=== PATIENT | female | born 1990 | race Caucasian/White ===

== ENCOUNTER 2016-09-28 01:26 | Emergency (ER) | payer OTHER ==
--- NOTE | 2016-09-28 04:25 | ED NURSING NOTES ---
Clinical Report - Nurses [facility] [address] [place] [address] 09/28/2016 1:27 Patient: FOX OROZCO TRIAGE Triage time 0150. Acuity: LEVEL 3. Chief Complaint: PELVIC PAIN and PAINFUL URINATION, URGENCY and FREQUENCY. NATIVIDAD COMA SCORE: Natividad Coma Scale: 15- eyes open spontaneously (4); best verbal response- oriented x 4 (5); best motor response- obeys commands (6). --01:59 Vonda Lao R.N. 01:50 09/28/16. BP: 140/90. HR: 100. RR: 20 (unlabored). O2 saturation: 100% on room air. Temp: 98.3 F (oral). Pain level now: 07/01. --01:59 Vonda Lao R.N. Weight: 52.1 kg stated. Height/Length: 65 inches Per Patient. BMI: 19.1. --01:50 Vonda Lao R.N. Medications None. --01:57 Vonda Loa R.N. Medication/allergy information source: the patient. --01:59 Vonda Lao R.N. Allergies No Known Drug Allergy. --01:57 Vonda Lao R.N. History Arrived by private vehicle. Historian: patient. Accompanied by friend. Primary physician ([facility] [place]). ( Pt c/o urinary symptoms x 4 days, blood in urine since yesterday. Pt also concerned of possible incomplete . [facility], given a 2 step dose of pills to abort of 11 weeks. Pt state she vomited, unsure if was completed and now worried.). Onset. (4 days ago). 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 PAST MEDICAL HX: Last normal menstrual period- mid June 2016. SOCIAL HX: Light tobacco smoker (cigarette)- less than 1/2 a pack per day. History of occasional drug use. (meth). No alcohol use. ABUSE ASSESSMENT: No report of abuse. FALL RISK ASSESSMENT: Fall risk assessment completed. No fall risk identified. NUTRITIONAL RISK ASSESSMENT: The nutritional risk assessment revealed no deficiencies. FUNCTIONAL ASSESSMENT: Functional assessment: no impairments noted. LEARNING NEEDS ASSESSMENT: The learning needs assessment revealed no barriers. SKIN INTEGRITY ASSESSMENT: Skin integrity risk assessment completed. No skin integrity risk identified. --01:59 Vonda Lao R.N. ADDITIONAL SURGERIES: . Tonsillectomy. --01:58 Vonda Lao R.N. Interventions ID band on patient. To treatment room. --01:59 Vonda Lao R.N. PHYSICAL ASSESSMENT 02:33. Ambulatory to room. GENERAL / NEURO / PSYCH: Alert. Oriented X 4. HEENT: Mucous membranes are pink. RESPIRATORY: Respirations not labored. SKIN: Skin is warm and dry. --02:34 Per Cotto R.N. NURSING PROGRESS NOTES 02:33 Patient in restroom collecting urine sample. --02:33 Per Ctoto R.N. Patient ID band checked for patient name and birthdate: patient confirmed. Clean catch urine collected with return of yellow-colored cloudy urine; sample sent to lab for urinalysis and HCG. Specimen labeled in the presence of the patient. --02:35 Per Cotto R.N. 02:36. Head of bed elevated. Two patient identifiers checked. Call light placed in reach. Bed placed in lowest position. Brakes of bed on. --02:36 Per Cotto R.N. 02:46 09/28/2016 Site #1 started via IV in the left antecubital space with an 20g angiocath, with aseptic technique and good blood return; one attempt. Blood drawn: rainbow set. Labeled in the presence of the patient and sent to the lab. Saline lock flushed with 10 mL saline. --02:52 Pre Cotto R.N. 04:00 09/28/2016 Augmentin (Amoxicillin-Pot Clavulanate) PO 875 mg given. Allergies verified and confirmed 5 rights. --04:06 Per Cotto R.N. 04:38. The patient is calm and resting quietly. SKIN: Skin is warm and dry. Skin color within normal limits. --04:41 Per Cotto R.N. DISPOSITION / DISCHARGE 04:35 09/28/2016 Site #1 removed upon discharge. Catheter intact. Bandage applied. --04:41 Per Cotto R.N. Departure time: 04:40. Condition at departure: stable. No learning barriers present. Discharge instructions provided and reviewed with operating room aide and the patient. Reviewed medication(s) side effects, precautions, dosing and course information. Prescription(s) given to the patient. Patient and operating room aide verbalized understanding. Written instructions provided in German. The patient was discharged home and accompanied by operating room aide. She left the Emergency Department ambulatory and via private vehicle. Concrete Vault Maker driving. FALL RISK ASSESSMENT: Fall risk assessment completed. No fall risk identified. --04:41 Per Cotto R.N. 04:39 09/28/16. BP: 128/63. HR: 88. RR: 14. O2 saturation: 100% on room air. Pain level now: 11/29. --04:41 Per Cotto R.N. Locked/Released at 09/28/2016 5:04 by Per Cotto R.N.
--- NOTE | 2016-09-28 04:25 | ED CLINICAL REPORT ---
Clinical Report - Physicians/Mid Levels [facility] [address] [place] [address] 09/28/2016 1:27 Patient: FOX OROZCO Time Seen: 03:21 Sep 28 2016. Arrived- By private vehicle. Historian- patient. CPT: ER phys charges level 4 (#[id number]). HISTORY OF PRESENT ILLNESS Chief Complaint: DYSURIA. 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 Pt also concerned of possible incomplete . [facility], given a 2 step dose of pills to abort of 11 weeks. Pt state she vomited, unsure if was completed and now worried.). Has not had any vaginal discharge or bleeding . does have dysuria and back pain on the right. and still present. The symptoms are described as moderate. Modifying factors- worsened by urination. Not relieved by anything. The patient has had abdominal pain. She has had mild, constant right-sided flank pain. No pelvic pain, vaginal pain, low back pain, abnormal bleeding or vaginal discharge. She has had pain with urination. The patient has had urinary frequency. Currently . Similar symptoms previously: None. Recent medical care: Not recently seen/assessed. REVIEW OF SYSTEMS The patient has had vomiting. No diarrhea, black stools, fever, chills or sore throat. No cough, difficulty breathing, chest pain or skin rash. All systems otherwise negative, except as recorded above. PAST HISTORY ( . Tonsillectomy). No history of ectopic . Medications: None. Allergies: No Known Drug Allergy. SOCIAL HISTORY Heavy tobacco smoker (cigarette)- less than 1 pack per day. History of drug use: methamphetamines. No alcohol use. ADDITIONAL NOTES The nursing notes have been reviewed. PHYSICAL EXAM Vital Signs: 09/28/2016 01:50 BP: 140/90. HR: 100. RR: 20. O2 saturation: 100%. Temp: 98.3 F. Pain level now: 1010. Appearance: Alert. No acute distress. Anxious. HEENT: Normal external inspection. ENT: Pharynx normal. Neck: Neck supple. CVS: Heart sounds normal. Respiratory: No respiratory distress. Breath sounds normal. Chest nontender. Abdomen: Soft and nontender. Bowel sounds normal. Back: Normal external inspection. No CVA tenderness. Skin: Normal skin color. No rash. Extremities: Extremities nontender. Neuro: Oriented X 3. Mood/affect normal. No motor deficit. LABS, X-RAYS, AND EKG Laboratory Tests: UA-Culture if indicated: (TIO: 09/28/2016 02:12) ( [facility] 09[facility] 03[facility]09) Final results Test Result Flag Units (Reference) URINE COLOR YELLOW URINE APPEARANCE CLEAR URINE GLUCOSE NEGATIVE (NEGATIVE) URINE BILIRUBIN NEGATIVE (NEGATIVE) URINE KETONE TRACE (NEGATIVE) URINE SPECIFIC GRAVITY >= 1.030 (1.010-1.030) URINE PH 6.5 (5.0-8.0) URINE PROTEIN 2+ (NEGATIVE) URINE UROBILINOGEN 0.2 EU/dL (0.2-1.0) URINE NITRITE NEGATIVE (NEGATIVE) URINE BLOOD 3+ (NEGATIVE) URINE LEUK ESTERASE POSITIVE (NEGATIVE) URINE RBC 5-10 rbc/hpf (0-1) URINE WBC 25-50 wbc/hpf (0-1) URINE EPITHELIAL CELLS 3-5 EPI/hpf (0-5) URINE BACTERIA MANY (4+) (NONE SEEN) URINE COMMENT CULTURE INDICATED URINE CULTURES ARE SET-UP BASED ON THE FOLLOWING CRITERIA:POSITIVE NITRITEPOSITIVE LEUKOCYTE ESTERASEGREATER THAN 10 WHITE BLOOD CELLSMODERATE (2+) OR GREATER BACTERIA CBC w Diff: (TIO: 09/28/2016 02:45) ( [facility] 09/28/2016 03:15) Final results Test Result Flag Units (Reference) WHITE BLOOD COUNT 15.5 H K/uL (4.5-11.5) RED BLOOD COUNT 4.24 M/uL (4.00-5.20) HEMOGLOBIN 13.3 gm/dL (12.0-16.0) HEMATOCRIT 39.7 % (36.0-46.0) MEAN CELL VOLUME 94 fL (80-100) MEAN CORPUSCULAR HGB 31 pg (26-34) MEAN CORPUSCULAR HGB CONC 34 g/dL (31-37) RED CELL DISTRIBUTION WIDTH 13.6 % (11.6-14.8) PLATELET COUNT 294 K/uL (150-400) NEUTROPHIL % 83.8 H % (50-75) LYMPH % 11.9 L % (25-40) MONO % 3.2 % (3-14) EOSINOPHIL % 0.8 % (0-4) BASOPHIL % 0.3 % (0-2) BMP: (TIO: 09/28/2016 02:45) ( [facility] 09/28/2016 03:47) Final results Test Result Flag Units (Reference) GLUCOSE 72 mg/dL (70-110) BUN 9 mg/dL (7-18) CREATININE 0.7 mg/dL (0.6-1.3) Estimated GFR >60 mL/min Estimated GFR- >60 mL/min Note: Persistent reduction over 3 months in eGFR<60 mL/min/1.73 m2 defines CKD. Patients with eGFR values>=60 mL/min/1.73 m2 may also have CKD if evidence ofpersistent proteinuria. Additional information may be foundat www.kidney.org. SODIUM 137 mmol/L (136-145) POTASSIUM 3.0 L mmol/L (3.5-5.1) CHLORIDE 102 mmol/L (98-107) CARBON DIOXIDE 28 mmol/L (21-32) CALCIUM 8.4 L mg/dL (8.5-10.1) BETA HCG, QUANTITATIVE 21813 mIU/mL REFERENCE RANGE:Adult Males: <2 mIU/mLNon- Females: <6 mIU/mL Females:Approximate Approximate hCGGestational Age Range (mIU/mL) 0-1 week 0-501-2 weeks 40-3002-3 weeks 100-18033-9 weeks 500-38047-0 months 5,000-200,0002-3 months 10,000-100,0002nd trimester 3,000-50,0003rd trimester 1,000-50,000 . PROGRESS AND PROCEDURES Course of Care: Tino Pt has had no symptoms of despite taking medications to induce . She does have a UTI. Augmentin 875 mg PO Patient is stable. Patient/family counseled. Disposition: Discharged. Condition: stable. CLINICAL IMPRESSION Acute urinary tract infection with cystitis and pyelonephritis. 11 week on protocol: no results at this time. INSTRUCTIONS Drink plenty of fluids. Warnings: Further evaluation is necessary. GENERAL WARNINGS: Return or contact your physician immediately if your condition worsens or changes unexpectedly, if not improving as expected, or if other problems arise. Prescription Medications: Amoxicillin/Clavulanate 875 mg: take 1 tablet orally every 12 hours for 7 days. Dispense fourteen (14). No refills. Follow-up: Follow up with your doctor Friday in two days. Call for an appointment. Understanding of the discharge instructions verbalized by patient. Discharge instructions reviewed with and understanding was verbalized by metal pattern maker. (Electronically signed by Cecil Gary MD 09/29/2016 22:35)
--- NOTE | 2016-09-28 04:25 | ED CLINICAL REPORT ---
Clinical Report - Physicians/Mid Levels [facility] [address] [place] [address] 09/28/2016 1:27 Patient: FOX OROZCO Time Seen: 03:21 Sep 28 2016. Arrived- By private vehicle. Historian- patient. CPT: ER phys charges level 4 (#[id number]). HISTORY OF PRESENT ILLNESS Chief Complaint: DYSURIA. 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 Pt also concerned of possible incomplete . [facility], given a 2 step dose of pills to abort of 11 weeks. Pt state she vomited, unsure if was completed and now worried.). Has not had any vaginal discharge or bleeding . does have dysuria and back pain on the right. and still present. The symptoms are described as moderate. Modifying factors- worsened by urination. Not relieved by anything. The patient has had abdominal pain. She has had mild, constant right-sided flank pain. No pelvic pain, vaginal pain, low back pain, abnormal bleeding or vaginal discharge. She has had pain with urination. The patient has had urinary frequency. Currently . Similar symptoms previously: None. Recent medical care: Not recently seen/assessed. REVIEW OF SYSTEMS The patient has had vomiting. No diarrhea, black stools, fever, chills or sore throat. No cough, difficulty breathing, chest pain or skin rash. All systems otherwise negative, except as recorded above. PAST HISTORY ( . Tonsillectomy). No history of ectopic . Medications: None. Allergies: No Known Drug Allergy. SOCIAL HISTORY Heavy tobacco smoker (cigarette)- less than 1 pack per day. History of drug use: methamphetamines. No alcohol use. ADDITIONAL NOTES The nursing notes have been reviewed. PHYSICAL EXAM Vital Signs: 09/28/2016 01:50 BP: 140/90. HR: 100. RR: 20. O2 saturation: 100%. Temp: 98.3 F. Pain level now: 1010. Appearance: Alert. No acute distress. Anxious. HEENT: Normal external inspection. ENT: Pharynx normal. Neck: Neck supple. CVS: Heart sounds normal. Respiratory: No respiratory distress. Breath sounds normal. Chest nontender. Abdomen: Soft and nontender. Bowel sounds normal. Back: Normal external inspection. No CVA tenderness. Skin: Normal skin color. No rash. Extremities: Extremities nontender. Neuro: Oriented X 3. Mood/affect normal. No motor deficit. LABS, X-RAYS, AND EKG Laboratory Tests: UA-Culture if indicated: (TIO: 09/28/2016 02:12) ( [facility]) Final results Test Result Flag Units (Reference) URINE COLOR YELLOW URINE APPEARANCE CLEAR URINE GLUCOSE NEGATIVE (NEGATIVE) URINE BILIRUBIN NEGATIVE (NEGATIVE) URINE KETONE TRACE (NEGATIVE) URINE SPECIFIC GRAVITY >= 1.030 (1.010-1.030) URINE PH 6.5 (5.0-8.0) URINE PROTEIN 2+ (NEGATIVE) URINE UROBILINOGEN 0.2 EU/dL (0.2-1.0) URINE NITRITE NEGATIVE (NEGATIVE) URINE BLOOD 3+ (NEGATIVE) URINE LEUK ESTERASE POSITIVE (NEGATIVE) URINE RBC 5-10 rbc/hpf (0-1) URINE WBC 25-50 wbc/hpf (0-1) URINE EPITHELIAL CELLS 3-5 EPI/hpf (0-5) URINE BACTERIA MANY (4+) (NONE SEEN) URINE COMMENT CULTURE INDICATED URINE CULTURES ARE SET-UP BASED ON THE FOLLOWING CRITERIA:POSITIVE NITRITEPOSITIVE LEUKOCYTE ESTERASEGREATER THAN 10 WHITE BLOOD CELLSMODERATE (2+) OR GREATER BACTERIA CBC w Diff: (TIO: 09/28/2016 02:45) ( [facility] 09/28/2016 03:15) Final results Test Result Flag Units (Reference) WHITE BLOOD COUNT 15.5 H K/uL (4.5-11.5) RED BLOOD COUNT 4.24 M/uL (4.00-5.20) HEMOGLOBIN 13.3 gm/dL (12.0-16.0) HEMATOCRIT 39.7 % (36.0-46.0) MEAN CELL VOLUME 94 fL (80-100) MEAN CORPUSCULAR HGB 31 pg (26-34) MEAN CORPUSCULAR HGB CONC 34 g/dL (31-37) RED CELL DISTRIBUTION WIDTH 13.6 % (11.6-14.8) PLATELET COUNT 294 K/uL (150-400) NEUTROPHIL % 83.8 H % (50-75) LYMPH % 11.9 L % (25-40) MONO % 3.2 % (3-14) EOSINOPHIL % 0.8 % (0-4) BASOPHIL % 0.3 % (0-2) BMP: (TIO: 09/28/2016 02:45) ( MsgRcvd 09/28/2016 03:47) Final results Test Result Flag Units (Reference) GLUCOSE 72 mg/dL (70-110) BUN 9 mg/dL (7-18) CREATININE 0.7 mg/dL (0.6-1.3) Estimated GFR >60 mL/min Estimated GFR- >60 mL/min Note: Persistent reduction over 3 months in eGFR<60 mL/min/1.73 m2 defines CKD. Patients with eGFR values>=60 mL/min/1.73 m2 may also have CKD if evidence ofpersistent proteinuria. Additional information may be foundat www.kidney.org. SODIUM 137 mmol/L (136-145) POTASSIUM 3.0 L mmol/L (3.5-5.1) CHLORIDE 102 mmol/L (98-107) CARBON DIOXIDE 28 mmol/L (21-32) CALCIUM 8.4 L mg/dL (8.5-10.1) BETA HCG, QUANTITATIVE 03225 mIU/mL REFERENCE RANGE:Adult Males: <2 mIU/mLNon- Females: <6 mIU/mL Females:Approximate Approximate hCGGestational Age Range (mIU/mL) 0-1 week 0-501-2 weeks 40-3002-3 weeks 100-65004-9 weeks 500-60880-6 months 5,000-200,0002-3 months 10,000-100,0002nd trimester 3,000-50,0003rd trimester 1,000-50,000 . PROGRESS AND PROCEDURES Course of Care: Tino Pt has had no symptoms of despite taking medications to induce . She does have a UTI. Augmentin 875 mg PO Patient is stable. Patient/family counseled. Disposition: Discharged. Condition: stable. CLINICAL IMPRESSION Acute urinary tract infection with cystitis and pyelonephritis. 11 week on protocol: no results at this time. INSTRUCTIONS Drink plenty of fluids. Warnings: Further evaluation is necessary. GENERAL WARNINGS: Return or contact your physician immediately if your condition worsens or changes unexpectedly, if not improving as expected, or if other problems arise. Prescription Medications: Amoxicillin/Clavulanate 875 mg: take 1 tablet orally every 12 hours for 7 days. Dispense fourteen (14). No refills. Follow-up: Follow up with your doctor Friday in two days. Call for an appointment. Understanding of the discharge instructions verbalized by patient. Discharge instructions reviewed with and understanding was verbalized by transportation sales consultant. (Electronically signed by Cecil Gary MD 09/29/2016 22:35)
--- NOTE | 2016-09-28 04:25 | ED NURSING NOTES ---
Clinical Report - Nurses [facility] [address] [place] [address] 09/28/2016 1:27 Patient: FOX OROZCO TRIAGE Triage time 0150. Acuity: LEVEL 3. Chief Complaint: PELVIC PAIN and PAINFUL URINATION, URGENCY and FREQUENCY. NATIVIDAD COMA SCORE: Natividad Coma Scale: 15- eyes open spontaneously (4); best verbal response- oriented x 4 (5); best motor response- obeys commands (6). --01:59 Vonda Lao R.N. 01:50 09/28/16. BP: 140/90. HR: 100. RR: 20 (unlabored). O2 saturation: 100% on room air. Temp: 98.3 F (oral). Pain level now: 07/01. --01:59 Vonda Lao R.N. Weight: 52.1 kg stated. Height/Length: 65 inches Per Patient. BMI: 19.1. --01:50 Vonda Lao R.N. Medications None. --01:57 Vonda Lao R.N. Medication/allergy information source: the patient. --01:59 Vonda Lao R.N. Allergies No Known Drug Allergy. --01:57 Vonda Lao R.N. History Arrived by private vehicle. Historian: patient. Accompanied by friend. Primary physician ([facility] [place]). ( Pt c/o urinary symptoms x 4 days, blood in urine since yesterday. Pt also concerned of possible incomplete . [facility], given a 2 step dose of pills to abort of 11 weeks. Pt state she vomited, unsure if was completed and now worried.). Onset. (4 days ago). 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 PAST MEDICAL HX: Last normal menstrual period- mid June 2016. SOCIAL HX: Light tobacco smoker (cigarette)- less than 1/2 a pack per day. History of occasional drug use. (meth). No alcohol use. ABUSE ASSESSMENT: No report of abuse. FALL RISK ASSESSMENT: Fall risk assessment completed. No fall risk identified. NUTRITIONAL RISK ASSESSMENT: The nutritional risk assessment revealed no deficiencies. FUNCTIONAL ASSESSMENT: Functional assessment: no impairments noted. LEARNING NEEDS ASSESSMENT: The learning needs assessment revealed no barriers. SKIN INTEGRITY ASSESSMENT: Skin integrity risk assessment completed. No skin integrity risk identified. --01:59 Vonda Lao R.N. ADDITIONAL SURGERIES: . Tonsillectomy. --01:58 Vonda Lao R.N. Interventions ID band on patient. To treatment room. --01:59 Vonda Lao R.N. PHYSICAL ASSESSMENT 02:33. Ambulatory to room. GENERAL / NEURO / PSYCH: Alert. Oriented X 4. HEENT: Mucous membranes are pink. RESPIRATORY: Respirations not labored. SKIN: Skin is warm and dry. --02:34 Per Cotto R.N. NURSING PROGRESS NOTES 02:33 Patient in restroom collecting urine sample. --02:33 Per Cotto R.N. Patient ID band checked for patient name and birthdate: patient confirmed. Clean catch urine collected with return of yellow-colored cloudy urine; sample sent to lab for urinalysis and HCG. Specimen labeled in the presence of the patient. --02:35 Per Cotto R.N. 02:36. Head of bed elevated. Two patient identifiers checked. Call light placed in reach. Bed placed in lowest position. Brakes of bed on. --02:36 Per Cotto R.N. 02:46 09/28/2016 Site #1 started via IV in the left antecubital space with an 20g angiocath, with aseptic technique and good blood return; one attempt. Blood drawn: rainbow set. Labeled in the presence of the patient and sent to the lab. Saline lock flushed with 10 mL saline. --02:52 Per Cotto R.N. 04:00 09/28/2016 Augmentin (Amoxicillin-Pot Clavulanate) PO 875 mg given. Allergies verified and confirmed 5 rights. --04:06 Per Cotto R.N. 04:38. The patient is calm and resting quietly. SKIN: Skin is warm and dry. Skin color within normal limits. --04:41 Per Cotto R.N. DISPOSITION / DISCHARGE 04:35 09/28/2016 Site #1 removed upon discharge. Catheter intact. Bandage applied. --04:41 Per Cotto R.N. Departure time: 04:40. Condition at departure: stable. No learning barriers present. Discharge instructions provided and reviewed with manager client and the patient. Reviewed medication(s) side effects, precautions, dosing and course information. Prescription(s) given to the patient. Patient and manager client verbalized understanding. Written instructions provided in Honduran. The patient was discharged home and accompanied by manager client. She left the Emergency Department ambulatory and via private vehicle. Strip Tank Tender driving. FALL RISK ASSESSMENT: Fall risk assessment completed. No fall risk identified. --04:41 Per Cotto R.N. 04:39 09/28/16. BP: 128/63. HR: 88. RR: 14. O2 saturation: 100% on room air. Pain level now: 11/29. --04:41 Per Cotto R.N. Locked/Released at 09/28/2016 5:04 by Per Cotto R.N.
--- NOTE | 2016-09-28 04:26 | ED ORDER SUMMARY ---
..... Patient: FOX OROZCO OrderSheet [facility] VisitID: [id number] [place] [address] 25y, F Registration Date/Time: 09/28/2016 ORDER SHEET Weight: 52.1 kg (stated) Allergies: No Known Drug Allergy GENERAL ORDERS: UA-Culture if indicated Urgent (02:38 09/28/2016 JQuivey R.N. per protocol) (Ack 2:45 CHagerty ER Research Development Director) (2:50 JQuivey R.N.) CBC w Diff Urgent (02:52 09/28/2016 JQuivey R.N. per protocol) (Ack 2:53 CHagerty ER Research Development Director) (3:33 JQuivey R.N.) BMP Urgent (02:52 09/28/2016 JQuivey R.N. per protocol) (Ack 2:53 CHagerty ER Research Development Director) (3:33 JQuivey R.N.) Serum Quantitative Urgent (02:52 09/28/2016 JQuivey R.N. per protocol) (Ack 2:53 CHagerty ER Research Development Director) (3:33 JQuivey R.N.) MEDICATION ORDERS: Augmentin PO 875 mg (NOW) (03:27 09/28/2016 Christel VILLGARAN) (Ack 3:33 JQuivey R.N.) (4:06 JQuivey R.N.) IV FLUIDS: IV Saline Lock (02:52 09/28/2016 JQuivey R.N. per protocol) (2:52 JQuivey R.N.) ORDER SHEET NOTES: [Electronically signed by Per Cotto R.N. (05:04 09/28/2016)] [Electronically signed by Cecil Gary MD (22:35 09/29/2016)] [Electronically locked/signed by Per Cotto R.N. (05:04 09/28/2016)]
--- NOTE | 2016-09-28 04:26 | ED ORDER SUMMARY ---
..... Patient: FOX OROZCO OrderSheet [facility] VisitID: [id number] [place] [address] 25y, F Registration Date/Time: 09/28/2016 ORDER SHEET Weight: 52.1 kg (stated) Allergies: No Known Drug Allergy GENERAL ORDERS: UA-Culture if indicated Urgent (02:38 09/28/2016 JQuivey R.N. per protocol) (Ack 2:45 CHagerty ER Hotel Concierge) (2:50 JQuivey R.N.) CBC w Diff Urgent (02:52 09/28/2016 JQuivey R.N. per protocol) (Ack 2:53 [facility] ER Hotel Concierge) (3:33 JQuivey R.N.) BMP Urgent (02:52 09/28/2016 JQuivey R.N. per protocol) (Ack 2:53 [facility] Hotel Concierge) (3:33 JQuivey R.N.) Serum Quantitative Urgent (02:52 09/28/2016 JQuivey R.N. per protocol) (Ack 2:53 [facility] Hotel Concierge) (3:33 JQuivey R.N.) MEDICATION ORDERS: Augmentin PO 875 mg (NOW) (03:27 09/28/2016 Christel VILLAGRAN) (Ack 3:33 JQuivey R.N.) (4:06 JQuivey R.N.) IV FLUIDS: IV Saline Lock (02:52 09/28/2016 JQuivey R.N. per protocol) (2:52 JQuivey R.N.) ORDER SHEET NOTES: [Electronically signed by Per Cotto R.N. (05:04 09/28/2016)] [Electronically signed by Cecil Gary MD (22:35 09/29/2016)] [Electronically locked/signed by Per Cotto R.N. (05:04 09/28/2016)]
--- NOTE | 2016-09-29 22:35 | ED MAR SUMMARY ---
..... Medication Administration Record [facility] [address] [place] [address] Patient: FOX OROZCO Visit ID: [id number] 25y, F Weight: 52.1 kg Height/Length: 65 in BMI: 19.1 ALLERGIES: No Known Drug Allergy Given 04:00 09/28/2016 Per Cotto RRafaNRafa Medication Administered: AUGMENTIN [PO] (AMOXICILLIN-POT CLAVULANATE), Dose: 875 mg PO. Medication Ordered: Augmentin PO 875 mg (NOW).
--- NOTE | 2016-09-29 22:35 | ED MED RECONCILIATION SUMMARY ---
Patient: FOX OROZCO Medication Reconciliation Report [facility] VisitID: [id number] [address] [place] [address] 25y, F Registration Date/Time: 09/28/2016 Weight: 52.1 kg Height/Length: 65 in. BMI: 19.1 ALLERGIES: No Known Drug Allergy The patient's Home Medications are listed below: NONE. The source(s) of the original Home Medication information: patient The following Medications were given to the patient in the Emergency Department: Augmentin [PO] PO 875 mg, administered: 09/28/2016 4:00:00 AM The following Medications were prescribed to the patient: Amoxicillin/Clavulanate 875 mg: take 1 tablet orally every 12 hours for 7 days. Dispense fourteen (14). No refills. -- Cecil Gary MD
--- NOTE | 2016-09-29 22:35 | ED DISCHARGE INSTRUCTIONS ---
Patient: FOX OROZCO General Instructions [facility] VisitID: [id number] [place] [address] 25y, F Registration Date/Time: 09/28/2016 Acute urinary tract infection with cystitis and pyelonephritis. 11 week on protocol: no results at this time. INSTRUCTIONS Drink plenty of fluids. Warnings: Further evaluation is necessary. GENERAL WARNINGS: Return or contact your physician immediately if your condition worsens or changes unexpectedly, if not improving as expected, or if other problems arise. Prescription Medications: Amoxicillin/Clavulanate 875 mg: take 1 tablet orally every 12 hours for 7 days. Dispense fourteen (14). No refills. Follow-up: Follow up with your doctor Friday in two days. Call for an appointment. Understanding of the discharge instructions verbalized by patient. Discharge instructions reviewed with and understanding was verbalized by mink farmer. ADDITIONAL INFORMATION Bladder Infection,Female (Adult) A bladder infection ("cystitis" or "UTI") usually causes a constant urge to urinate and a burning when passing urine. Urine may be cloudy, smelly or dark. There may be pain in the lower abdomen. A bladder infection occurs when bacteria from the vaginal area enter the bladder opening (urethra). This can occur from sexual intercourse, wearing tight clothing, dehydration and other factors. Home Care: Drink lots of fluids (at least 6-8 glasses a day, unless you must restrict fluids for other medical reasons). This will force the medicine into your urinary system and flush the bacteria out of your body. Avoid sexual intercourse until your symptoms are gone. Avoid caffeine, alcohol and spicy foods. These can irritate the bladder. A bladder infection is treated with antibiotics. You may also be given Pyridium (generic = phenazopyridine) to reduce the burning sensation. This medicine will cause your urine to become a bright orange color. The orange urine may stain clothing. You may wear a pad or panty-liner to protect clothing. Preventing Future Infections: Always wipe from front to back after a bowel movement. Keep the genital area clean and dry. Drink plenty of fluids each day to avoid dehydration. Both sexual partners should wash before intercourse. Urinate right after intercourse to flush out the bladder. Wear cotton underwear and cotton-lined panty hose; avoid tight-fitting pants. If you are on control pills and are having frequent bladder infections, discuss with your doctor. Follow Up: Return to this facility or see your doctor if ALL symptoms are not gone after three days of treatment. Get Prompt Medical Attention if any of the following occur: Fever of 100.4F (38C) or higher, or as directed by your healthcare provider No improvement by the third day of treatment Increasing back or abdominal pain Repeated vomiting; unable to keep medicine down Weakness, dizziness or fainting Vaginal discharge Pain, redness or swelling in the labia (outer vaginal area) You have been given the following additional information: Bladder Infection, Female (Adult) (Electronically signed by Cecil Gary MD 09/29/2016 22:35)
--- NOTE | 2016-09-29 22:35 | ED MAR SUMMARY ---
..... Medication Administration Record [facility] [address] [place] [address] Patient: FOX OROZCO Visit ID: [id number] 25y, F Weight: 52.1 kg Height/Length: 65 in BMI: 19.1 ALLERGIES: No Known Drug Allergy Given 04:00 09/28/2016 Per Cotto RRafaNRafa Medication Administered: AUGMENTIN [PO] (AMOXICILLIN-POT CLAVULANATE), Dose: 875 mg PO. Medication Ordered: Augmentin PO 875 mg (NOW).
--- NOTE | 2016-09-29 22:35 | ED MED RECONCILIATION SUMMARY ---
Patient: FOX OROZCO Medication Reconciliation Report [facility] VisitID: [id number] [address] [place] [address] 25y, F Registration Date/Time: 09/28/2016 Weight: 52.1 kg Height/Length: 65 in. BMI: 19.1 ALLERGIES: No Known Drug Allergy The patient's Home Medications are listed below: NONE. The source(s) of the original Home Medication information: patient The following Medications were given to the patient in the Emergency Department: Augmentin [PO] PO 875 mg, administered: 09/28/2016 4:00:00 AM The following Medications were prescribed to the patient: Amoxicillin/Clavulanate 875 mg: take 1 tablet orally every 12 hours for 7 days. Dispense fourteen (14). No refills. -- Cecil Gary MD
--- NOTE | 2016-09-29 22:35 | ED DISCHARGE INSTRUCTIONS ---
Patient: FOX OROZCO General Instructions [facility] VisitID: [id number] [place] [address] 25y, F Registration Date/Time: 09/28/2016 Acute urinary tract infection with cystitis and pyelonephritis. 11 week on protocol: no results at this time. INSTRUCTIONS Drink plenty of fluids. Warnings: Further evaluation is necessary. GENERAL WARNINGS: Return or contact your physician immediately if your condition worsens or changes unexpectedly, if not improving as expected, or if other problems arise. Prescription Medications: Amoxicillin/Clavulanate 875 mg: take 1 tablet orally every 12 hours for 7 days. Dispense fourteen (14). No refills. Follow-up: Follow up with your doctor Friday in two days. Call for an appointment. Understanding of the discharge instructions verbalized by patient. Discharge instructions reviewed with and understanding was verbalized by railroad track repair supervisor. ADDITIONAL INFORMATION Bladder Infection,Female (Adult) A bladder infection ("cystitis" or "UTI") usually causes a constant urge to urinate and a burning when passing urine. Urine may be cloudy, smelly or dark. There may be pain in the lower abdomen. A bladder infection occurs when bacteria from the vaginal area enter the bladder opening (urethra). This can occur from sexual intercourse, wearing tight clothing, dehydration and other factors. Home Care: Drink lots of fluids (at least 6-8 glasses a day, unless you must restrict fluids for other medical reasons). This will force the medicine into your urinary system and flush the bacteria out of your body. Avoid sexual intercourse until your symptoms are gone. Avoid caffeine, alcohol and spicy foods. These can irritate the bladder. A bladder infection is treated with antibiotics. You may also be given Pyridium (generic = phenazopyridine) to reduce the burning sensation. This medicine will cause your urine to become a bright orange color. The orange urine may stain clothing. You may wear a pad or panty-liner to protect clothing. Preventing Future Infections: Always wipe from front to back after a bowel movement. Keep the genital area clean and dry. Drink plenty of fluids each day to avoid dehydration. Both sexual partners should wash before intercourse. Urinate right after intercourse to flush out the bladder. Wear cotton underwear and cotton-lined panty hose; avoid tight-fitting pants. If you are on control pills and are having frequent bladder infections, discuss with your doctor. Follow Up: Return to this facility or see your doctor if ALL symptoms are not gone after three days of treatment. Get Prompt Medical Attention if any of the following occur: Fever of 100.4F (38C) or higher, or as directed by your healthcare provider No improvement by the third day of treatment Increasing back or abdominal pain Repeated vomiting; unable to keep medicine down Weakness, dizziness or fainting Vaginal discharge Pain, redness or swelling in the labia (outer vaginal area) You have been given the following additional information: Bladder Infection, Female (Adult) (Electronically signed by Cecil Gary MD 09/29/2016 22:35)
== END 2016-09-28 04:40 | disposition home or self-care (01) ==
LOC: ED SRH 01:26
DX: O23.11 Infections of bladder in pregnancy, first trimester (principal); O23.01 Infections of kidney in pregnancy, first trimester; Z3A.11 11 weeks gestation of pregnancy; O99.331 Smoking (tobacco) complicating pregnancy, first trimester; F17.210 Nicotine dependence, cigarettes, uncomplicated
CPT/HCPCS: 90004; 90047; 90197; 90469; 91672; 95059